=== PATIENT | female | born 1980 | race Two or more races ===

== ENCOUNTER 2024-12-07 15:03 | Inpatient (IN) | payer OTHER ==
[~2024-12-07] VITALS: Ht 157.5 cm; Wt 91.4 kg
[~2024-12-07 15:03] MED LIST: ACET-2247 PO; FAMO20 PO; GABA-1216 PO; MAGN-169 PO; MULT-264 PO
[2024-12-07 15:46] LABS: BASOPHILS % (AUTO) 0.4 % (0.0-2.0); EOSINOPHILS % (AUTO) 0.4 % (1.0-6.0); HEMATOCRIT 37.6 % (36-46); HEMOGLOBIN 12.2 g/dL (12.0-16.0); LYMPHOCYTES # (AUTO) 1.1 K/uL (1.0-4.8); MEAN CORPUSCULAR HEMOGLOBIN 30.4 pg (26.0-34.0); MEAN CORPUSCULAR HGB CONC 32.5 G/dL (31.0-37.0); MEAN CORPUSCULAR VOLUME 94 fL (80-100); MONOCYTES # (AUTO) 0.4 K/uL (0.1-1.0); NEUTROPHILS # (AUTO) 6.9 K/uL (1.8-7.7); NEUTROPHILS % (AUTO) 81.2 % (40.0-70.0); PLATELET COUNT (AUTO) 275 K/uL (150-450); RED BLOOD CELL COUNT(AUTO) 4.02 MIL/uL (4.00-5.20); RED CELL DISTRIBUTION WIDTH 14.8 % (11.5-14.5); WHITE BLOOD COUNT (AUTO) 8.5 K/uL (4.5-11.0)
[2024-12-07 16:02] LABS: ALCOHOL, BLOOD (SERUM) 20 mg/dL (0-10)
[2024-12-07 16:05] LABS: ALBUMIN 3.3 g/dL (3.4-5.0); ANION GAP 12 mmol/L (8-16); BILIRUBIN,DIRECT 0.1 mg/dL (0.00-0.20); BILIRUBIN,TOTAL 0.5 mg/dL (0.1-1.0); CALCIUM, TOTAL 8.5 mg/dL (8.8-10.5); CARBON DIOXIDE 23 mmol/L (22-29); CHLORIDE 101 mmol/L (98-107); CREATININE 0.53 mg/dL (0.60-1.30); GLOMERULAR FILTR. RATE CALC > 60 mL/min (>60); GLUCOSE,RANDOM 94 mg/dL (70-110); POTASSIUM 3.4 mmol/L (3.5-5.1); SODIUM SERUM 136 mmol/L (136-145); TOTAL PROTEIN, SERUM 7.4 g/dL (6.4-8.2); UREA NITROGEN, BLOOD 5 mg/dL (7-18)
[2024-12-07 16:12] LABS: HCG,QUANTITATIVE 1 mIU/mL (0-6)
[2024-12-07] MEDS: ONDANSETRON HCL 4 MG/2 ML VIAL IVP ONE (16:20)
[2024-12-07] MEDS: SODIUM CHLORIDE 0.9% 1,000 ML IV ONE (16:20)
[2024-12-07] MEDS: IBUPROFEN 600 MG TABLET PO ONE (16:20)
[2024-12-07 16:59] LABS: APPEARANCE,URINE CLEAR (CLEAR); BILIRUBIN,URINE NEGATIVE (NEGATIVE); COLOR,URINE LIGHT YELLOW (YELLOW); GLUCOSE, URINE (UA) NEGATIVE (NEGATIVE); KETONES,URINE 40-60 mg/dL (NEGATIVE); LEUKOCYTE ESTERASE ,URINE NEGATIVE (NEGATIVE); NITRATE,URINE NEGATIVE (NEGATIVE); OCCULT BLOOD,URINE NEGATIVE (NEGATIVE); PH,URINE 6.5 (5.0-8.0); PH,URINE DRUG SCREEN 6.5 (5.0-8.0); PROTEIN,URINE NEGATIVE (NEGATIVE); SPECIFIC GRAVITIY, URINE 1.014 (1.003-1.030); UROBILINOGEN,URINE <=1.0 mg/dL (<=1.0)
[2024-12-07 17:05] LABS: COVID AG,FIA SOURCE NPH
[2024-12-07 17:07] LABS: ALCOHOL, URINE DRUG SCREEN NEGATIVE (NEGATIVE); AMPHET/METH SCREEN,URINE POSITIVE (NEGATIVE); BARBITURATE SCREEN, URINE NEGATIVE (NEGATIVE); BENZODIAZEPINES SCREEN,URINE NEGATIVE (NEGATIVE); CANNABINOID SCREEN,URINE NEGATIVE (NEGATIVE); COCAINE SCREEN,URINE NEGATIVE (NEGATIVE); METHADONE SCREEN, URINE NEGATIVE (NEGATIVE); OPIATE SCREEN,URINE NEGATIVE (NEGATIVE); PHENCYCLIDINE SCREEN,URINE NEGATIVE (NEGATIVE)
[2024-12-07 17:22] LABS: SARS-COV2 (COVID) ANTIGEN,FIA Negative (Negative)
[2024-12-07] MEDS: DIAZEPAM 5 MG TABLET PO ONE (18:06)
[2024-12-07] MEDS: 1: MAGNESIUM SULFATE 2 GM, MVI, ADULT NO.1 WITH VIT K 10 ML, THIAMINE 100 MG, FOLIC ACID IV SCH (18:45)
[2024-12-07] MEDS: LORazepam 2 MG TABLET PO PRN (19:47)
[2024-12-07 21:44] VITALS: BP 107/64; PULSE 85; RESP 18; TEMP 98.1; O2SAT 96
[2024-12-07] MEDS ORDERED: POTASSIUM CHL 10 MEQ/WATER 50 ML IV PRN (22:00)
[2024-12-07] MEDS: POTASSIUM CHLORIDE 20 MEQ ER TABLET PO PRN (22:05)
[2024-12-08 04:54] VITALS: BP 108/64; PULSE 75; RESP 18; TEMP 97.9; O2SAT 96
[2024-12-08 07:15] VITALS: BP 132/80; PULSE 73; RESP 18; TEMP 97.5; O2SAT 97
[2024-12-08] MEDS: LORazepam 2 MG TABLET PO SCH (08:45)
[2024-12-08 11:42] VITALS: BP 115/81; PULSE 81; RESP 16; TEMP 97.5; O2SAT 98
[2024-12-08 13:52] LABS: C.DIFF GDH ANTIGEN, Stool Negative (Negative); C.DIFF TOXINS A&B, Stool Negative (Negative)
[2024-12-08] MEDS: LOPERAMIDE HCL 2 MG CAPSULE PO PRN (14:28)
[2024-12-08] MEDS ORDERED: IOHEXOL 350 MG/ML 100 ML VIAL ONE ×2 (14:38→15:30)
[2024-12-08] MEDS ORDERED: SODIUM CHLORIDE 0.9% 100 ML ONE ×2 (14:38→15:30)
[2024-12-08 17:23] VITALS: BP 109/75; PULSE 76; RESP 16; TEMP 97.8; O2SAT 97
[2024-12-08 19:20] VITALS: BP 127/90; PULSE 79; RESP 18; TEMP 97.9; O2SAT 97
[2024-12-09 04:23] VITALS: BP 134/93; PULSE 69; RESP 18; TEMP 97.3; O2SAT 97
[2024-12-09] MEDS: LORazepam 2 MG TABLET PO PRN (04:25)
[2024-12-09] MEDS: ACETAMINOPHEN 325 MG TABLET PO PRN (04:25)
[2024-12-09 07:08] LABS: POTASSIUM 3.4 mmol/L (3.5-5.1)
[2024-12-09 08:05] VITALS: BP 113/76; PULSE 81; RESP 18; TEMP 98.1; O2SAT 96
[2024-12-09] MEDS ORDERED: POTASSIUM CHL 10 MEQ/WATER 50 ML IV PRN (10:15)
[2024-12-09] MEDS ORDERED: MAGNESIUM OXIDE 400 MG TABLET PO PRN (10:15)
[2024-12-09] MEDS ORDERED: MAGNESIUM SULFATE 2 GM/WATER 50 ML IV PRN (10:15)
[2024-12-09] MEDS ORDERED: MAGNESIUM SULFATE 4 GM/WATER 100 ML IV PRN (10:15)
[2024-12-09] MEDS ORDERED: POTASSIUM CHLORIDE 20 MEQ ER TABLET PO PRN (10:15)
[2024-12-09] MEDS: PANTOPRAZOLE SODIUM 40 MG/VIAL IVP SCH (10:45)
[2024-12-09 10:48] LABS: ALBUMIN 2.7 g/dL (3.4-5.0)
[2024-12-09 19:30] VITALS: BP 118/79; PULSE 76; RESP 18; TEMP 97.9; O2SAT 95
[2024-12-09] MEDS ORDERED: SODIUM CHLORIDE 0.9% 1,000 ML ONE (19:52)
[2024-12-09] MEDS: LORazepam 2 MG/ML VIAL IM PRN (20:19)
[2024-12-09] MEDS: MELATONIN 3 MG TABLET PO PRN (21:59)
[2024-12-10 04:25] VITALS: BP 103/67; PULSE 72; RESP 18; TEMP 97.5; O2SAT 98
[2024-12-10] MEDS ORDERED: LORazepam 1 MG TABLET PO PRN (07:00)
[2024-12-10 07:55] LABS: POTASSIUM 3.4 mmol/L (3.5-5.1)
[2024-12-10] MEDS ORDERED: LORazepam 1 MG TABLET PO SCH (09:00)
[2024-12-10] MEDS ORDERED: PANT-31 PO (10:47)
[2024-12-10 21:18] VITALS: BP 135/81; PULSE 67; RESP 18; TEMP 98.8; O2SAT 97
[2024-12-11] MEDS ORDERED: LORazepam 1 MG TABLET PO PRN (07:00)
== END 2024-12-10 23:00 | DRG 392 ==
LOC: EMS 15:03 → EDH 19:49 → 6N 21:34
PROVIDERS: ADMIT Internal Medicine; ATTEND Internal Medicine
DX: K29.20 Alcoholic gastritis without bleeding (principal); E87.6 Hypokalemia; R56.9 Unspecified convulsions; F15.10 Other stimulant abuse, uncomplicated; Z20.822 Contact with and (suspected) exposure to COVID-19; N83.202 Unspecified ovarian cyst, left side; F10.129 Alcohol abuse with intoxication, unspecified; Y90.1 Blood alcohol level of 20-39 mg/100 ml; Z79.899 Other long term (current) drug therapy
CPT/HCPCS: 74177; 80048; 80076; 80307; 81003; 82040; 83690; 83735; 84132; 84702; 85025; 87324; 87449; 96361; 96374; 99285; G0480; J2060; J2405; J2470; J3411; J3475; J3490; J7030; J7050; 36415-L1; 36415-TC

== ENCOUNTER 2025-07-20 09:16 | Emergency (ER) | payer OTHER ==
[~2025-07-20] VITALS: Ht 170.2 cm; Wt 90.9 kg
[~2025-07-20 09:16] MED LIST changes: -GABA-1216 PO; -MAGN-169 PO; -MULT-264 PO; +PANT-31 PO
[2025-07-20 09:19] VITALS: BP 131/82; PULSE 100; RESP 18; TEMP 98.1; O2SAT 99
[2025-07-20 10:12] LABS: APPEARANCE,URINE HAZY (CLEAR); GLUCOSE, URINE (UA) NEGATIVE (NEGATIVE); LEUKOCYTE ESTERASE ,URINE LARGE (NEGATIVE); NITRATE,URINE NEGATIVE (NEGATIVE); OCCULT BLOOD,URINE NEGATIVE (NEGATIVE); SPECIFIC GRAVITIY, URINE 1.022 (1.003-1.030)
[2025-07-20 10:27] LABS: SQUAMOUS EPITHELIAL CELL,UR Moderate /LPF (None Seen)
[2025-07-20] MEDS: CefTRIAXone SODIUM 1 GM/VIAL IM ONE (10:33)
[2025-07-20] MEDS: LIDOCAINE/PF 1% 2 ML VIAL IM ONE (10:34)
[2025-07-20] MEDS: LIDOCAINE 5% TRANSDERMAL PATCH TD ONE (10:34)
[2025-07-20] MEDS: DOXYCYCLINE HYCLATE 100 MG TABLET PO ONE (10:34)
[2025-07-20] MEDS: IBUPROFEN 400 MG TABLET PO ONE (10:34)
[2025-07-20] MEDS ORDERED: DOXY-354 PO (11:02)
== END 2025-07-20 11:07 | disposition home or self-care (01) ==
LOC: EMS 09:16
DX: R30.0 Dysuria (principal); Z79.899 Other long term (current) drug therapy
CPT/HCPCS: 99284; 81001; 84703; 87086; 96372; J0696; J3490